=== PATIENT | female | born 1965 | race Caucasian/White ===

== ENCOUNTER → 2016-11-12 19:36 | Emergency (ER) | payer OTHER ==
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
[2016-11-12 22:37] VITALS: BP 135/73
== END | disposition home or self-care (01) ==
LOC: ED 19:36
DX: S01.01XA Laceration without foreign body of scalp, initial encounter (principal); S09.90XA Unspecified injury of head, initial encounter; F17.200 Nicotine dependence, unspecified, uncomplicated; Y04.8XXA Assault by other bodily force, initial encounter; Y92.9 Unspecified place or not applicable
CPT/HCPCS: 12002; 70450; 72125; 99283

== ENCOUNTER 2017-04-17 15:04 | Emergency (ER) | payer MEDICAID ==
[2017-04-17 17:14] VITALS: BP 137/67
--- NOTE | 2017-05-03 08:38 | ED ---
Lower Extremity - HPI Summary HPI Summary: Patient presents to the ED with CC of left knee pain. She states she injured the knee with a twisting motion over 1 month ago and the knee continues to be painful. Images obtained with no signs of fracture. No ecchymosis or swelling. Ambulating well. Pain is worse at night and while ambulating. Better with rest and ice. Ibuprofen without relief. Otherwise healthy. Pain is discretely located over the medial knee without radiation. - History of Current Complaint Chief Complaint: EDExtremityLower Stated Complaint: LEFT KNEE INJURY Time Seen by Provider: 04/17/17 15:23 Hx Obtained From: Patient Mechanism Of Injury: Twisted Onset of Pain: Immediate Onset/Duration: Still Present - over 1 month Severity Initially: Moderate Severity Currently: Moderate Pain Intensity: 10 Pain Scale Used: 0-10 Numeric Timing: Constant Location: Is Discrete @ - medial L knee Associated Signs And Symptoms: Positive: Negative Aggravating Factor(s): Standing, Ambulation Alleviating Factor(s): Rest, Elevation Able to Bear Weight: Yes - Risk Factors Gout Risk Factors: Age Over 40 DVT Risk Factors: Negative Septic Arthritis Risk Factor: Negative - Allergies/Home Medications Allergies/Adverse Reactions: Allergies Allergy/AdvReac Type Severity Reaction Status Date / Time No Known Allergies Allergy Verified 03/13/14 12:46 PMH/Surg Hx/FS Hx/Imm Hx Previously Healthy: Yes Endocrine/Hematology History: Denies: Hx Diabetes Cardiovascular History: Denies: Hx Congestive Heart Failure, Hx Hypertension, Hx Pacemaker/ICD Musculoskeletal History: Reports: Hx Arthritis Sensory History: Denies: Hx Hearing Aid Psychiatric History: Denies: Hx Panic Disorder - Surgical History Surgery Procedure, Year, and Place: 6 C-SECTIONS - Immunization History Hx Pertussis Vaccination: No Immunizations Up to Date: Unable to Obtain/Confirm Infectious Disease History: No Infectious Disease History: Denies: Traveled Outside the [place] in Last 30 Days - Family History Known Family History: Positive: Cardiac Disease, Hypertension, Diabetes - Social History Occupation: Employed Full-time Lives: With Family Alcohol Use: Occasionally Hx Substance Use: No Substance Use Type: Reports: None Hx Tobacco Use: Yes Smoking Status (MU): Heavy Every Day Tobacco Smoker Review of Systems Constitutional: Negative Negative: Fever, Chills, Fatigue Eyes: Negative Cardiovascular: Negative Respiratory: Negative Genitourinary: Negative Positive: no symptoms reported, see HPI Positive: Arthralgia - L medial knee pain Skin: Negative Psychological: Normal All Other Systems Reviewed And Are Negative: Yes Physical Exam Triage Information Reviewed: Yes Vital Signs On Initial Exam: Initial Vitals Temp Pulse Resp BP Pulse Ox 98.2 F 95 20 141/86 95 04/17/17 15:10 04/17/17 15:10 04/17/17 15:10 04/17/17 15:10 04/17/17 15:10 Vital Signs Reviewed: Yes Appearance: Positive: Well-Appearing, Well-Nourished Skin: Positive: Warm, Skin Color Reflects Adequate Perfusion Head/Face: Positive: Normal Head/Face Inspection Eyes: Positive: EOMI, FOREST, Conjunctiva Clear Neck: Positive: Supple, No Lymphadenopathy Respiratory/Lung Sounds: Positive: Clear to Auscultation, Breath Sounds Present Cardiovascular: Positive: Normal, RRR, Pulses are Symmetrical in both Upper and Lower Extremities Musculoskeletal: Positive: Pain @ - medial knee Neurological: Positive: Speech Normal Psychiatric: Positive: Normal - [place] Coma Scale Coma Scale Total: 15 Diagnostics - Vital Signs Vital Signs Temp Pulse Resp BP Pulse Ox 04/17/17 17:13 98.2 F 93 16 137/67 04/17/17 15:10 98.2 F 95 20 141/86 95 - Laboratory Lab Statement: Any lab studies that have been ordered have been reviewed, and results considered in the medical decision making process. Lower Extremity Course/Dx - Course Course Of Treatment: Patient is evlauated for medial knee pain. Patient notes to pain with flexion and extension. Denies other pain at this time. Deferred any imaging as no new injury occurred from injury sustained 1 month ago. She may need more imaging and will refer to ortho. She is given 2 days of tramadol. Patient given orthopedic follow up in 5-7 days. Encouraged Ibuprofen 600mg three times daily with meals for pain. Return precautions given. Educated patient regarding knee injuries and healing time and the possibility of further evaluation and imaging as orthopedist sees fit. - Diagnoses Differential Diagnosis/HQI/PQRI: Positive: Contusion Provider Diagnoses: Strain of knee Discharge - Discharge Plan Condition: Stable Disposition: HOME Prescriptions: traMADol TAB* [Ultram*] 50 mg PO Q12H PRN #10 tab MDD 2 PRN Reason: Pain Patient Education Materials: Knee Sprain (ED) Forms: *Work Release Referrals: Miguelangel Delgado MD [Medical Doctor] - Sebastien Pinto MD [Primary Care Provider] - Additional Instructions: Please follow up with ortho Tramadol as needed for pain Ice Heat Elevate
== END 2017-04-17 17:13 | disposition home or self-care (01) ==
LOC: ED 15:04
DX: S83.92XA Sprain of unspecified site of left knee, initial encounter (principal); M25.562 Pain in left knee; X50.9XXA Other and unspecified overexertion or strenuous movements or postures, initial encounter; Y93.9 Activity, unspecified; Y92.9 Unspecified place or not applicable
CPT/HCPCS: 99282

== ENCOUNTER 2018-08-18 03:36 | Emergency (ER) | payer OTHER ==
--- NOTE | 2018-08-18 04:15 | ED ---
Upper Extremity Pain - HPI Summary HPI Summary: A 53 y/o female, accompanied by her niece, presents to [facility] with a chief complaint of left thumb pain, claiming that her left thumb nail is coming off after jamming it on 08/11/18. At triage the patient rated her pain as an 8/10 in severity. Vital signs at triage - Heart rate: 108 bpm, BP: 99/63, O2 Sat: 95 - History of Current Complaint Chief Complaint: EDExtremityUpper Stated Complaint: L THUMB INUJURY Time Seen by Provider: 08/18/18 03:55 Hx Obtained From: Patient Mechanism Of Injury: Other - jammed fingere Onset/Duration: Started Days Ago, Still Present Timing: Constant, Lasting Days Severity Initially: Severe Severity Currently: Severe Pain Location: Finger - left thumb Character: Unable to Describe Aggravating Factor(s): Nothing Alleviating Factor(s): Nothing Associated Signs & Symptoms: Negative: Fever - Allergies/Home Medications Allergies/Adverse Reactions: Allergies Allergy/AdvReac Type Severity Reaction Status Date / Time No Known Allergies Allergy Verified 03/13/14 12:46 PMH/Surg Hx/FS Hx/Imm Hx Endocrine/Hematology History: Denies: Hx Diabetes Cardiovascular History: Denies: Hx Congestive Heart Failure, Hx Hypertension, Hx Pacemaker/ICD Musculoskeletal History: Reports: Hx Arthritis Sensory History: Denies: Hx Hearing Aid Psychiatric History: Denies: Hx Panic Disorder - Surgical History Surgery Procedure, Year, and Place: 6 C-SECTIONS Infectious Disease History: No Infectious Disease History: Denies: Traveled Outside the [place] in Last 30 Days - Family History Known Family History: Positive: Cardiac Disease, Hypertension, Diabetes - Social History Alcohol Use: Occasionally Hx Substance Use: No Substance Use Type: Reports: None Hx Tobacco Use: Yes Smoking Status (MU): Heavy Every Day Tobacco Smoker Review of Systems Negative: Fever Positive: Other - positive: left thum pain, left thumb fingernail coming off All Other Systems Reviewed And Are Negative: Yes Physical Exam - Summary Physical Exam Summary: Appearance: Well-appearing, Well-nourished, lying in bed comfortable Skin: Warm, dry, no obvious rash Eyes: sclera anicteric, no conjunctival pallor ENT: mucous membranes moist Neck: deferred Respiratory: No signs of respiratory distress Cardiovascular: Appears well perfused, pulses are nml Abdomen: deferred Musculoskeletal: Left thumb nail from nail bed holding on at nail matrix, Tenderness at distal phalanx. Moving all 4 extremities without obvious discomfort Neurological: Awake and alert, mentation is normal, speech is fluent and appropriate Psychiatric: affect is normal, does not appear anxious or depressed Triage Information Reviewed: Yes Vital Signs On Initial Exam: Initial Vitals Temp Pulse Resp BP Pulse Ox 98 F 108 18 99/63 95 08/18/18 03:55 08/18/18 03:55 08/18/18 03:55 08/18/18 03:55 08/18/18 03:55 Vital Signs Reviewed: Yes Diagnostics - Vital Signs Vital Signs Temp Pulse Resp BP Pulse Ox 08/18/18 03:55 98 F 108 18 99/63 95 - Laboratory Lab Statement: Any lab studies that have been ordered have been reviewed, and results considered in the medical decision making process. - Radiology left thumb x-ray Radiology Interpretation Completed By: ED Physician Summary of Radiographic Findings: No fracture. Pending official imaging report. Course/Dx - Course Course Of Treatment: A 53 y/o female, accompanied by her niece, presents to [facility] with a chief complaint of left thumb pain, claiming that her left thumb nail is coming off after jamming it on 08/11/18. At triage the patient rated her pain as an 8/10 in severity. The physical exam revealed that her left thumb nail from nail bed holding on at nail matrix, Tenderness at distal phalanx. Left thumb x-ray showed no fracture. The patient will be discharged. She is agreeable with this plan. - Diagnoses Provider Diagnoses: Subungual hematoma Discharge - Sign-Out/Discharge Documenting (check all that apply): Patient Departure - DC Patient Received Moderate/Deep Sedation with Procedure: No - Discharge Plan Condition: Good Disposition: HOME Patient Education Materials: Subungual Hematoma (ED) Referrals: Sebastien Pinto MD [Primary Care Provider] - If Needed Additional Instructions: The nail has from the nailbed but is still holding on by the nail matrix under the cuticle. This is where the nail grows out from, and it is important to keep the nail there and intact. It should grow out gradually. Keep the nail trimmed so it is less likely to get caught on something and pulled off , and it can be very helpful to wrap it with tape to keep it in place. The xray looked fine, there is no break in the bone. - Billing Disposition and Condition Condition: GOOD Disposition: Home - Attestation Statements Document Initiated by Rosa: Yes Documenting Frankieibe: Juni Yang Provider For Whom Rosa is Documenting (Include Credential): Gibson Armenta MD Scribe Attestation: IJuni, scribed for Gibson Armenta MD on 08/18/18 at 0515. Scribe Documentation Reviewed: Yes Provider Attestation: The documentation as recorded by the Juni aaron accurately reflects the service I personally performed and the decisions made by me, Gibson Armenta MD Status of Scribe Document: Viewed
[2018-08-18 04:41] VITALS: BP 116/61
--- NOTE | 2018-08-18 17:47 | PN ---
Progress Note - Progress Note Date of Service: 08/18/18 Note: Pt. seen in ED last night for thumb injury. Xray read as negative by ER physician. Radiologist is concerned there may be a nondisplaced fx to distal aspect of thumb. I attempted to call pt. today at [phone] but number listed is not her home number. Will send letter to return call to discuss xray.
== END 2018-08-18 04:41 | disposition home or self-care (01) ==
LOC: ED 03:36
DX: S60.012A Contusion of left thumb without damage to nail, initial encounter (principal); W22.8XXA Striking against or struck by other objects, initial encounter; Y92.9 Unspecified place or not applicable; F17.210 Nicotine dependence, cigarettes, uncomplicated
CPT/HCPCS: 99282

== ENCOUNTER 2021-02-03 11:30 | Inpatient (IN) ==
[2021-02-03 12:32] LABS: Hematocrit 50 % (35-47); Hemoglobin 16.5 g/dL (12.0-16.0); Mean Corpuscular HGB Conc 33 g/dL (31-36); Mean Corpuscular Hemoglobin 31 pg (27-31); Mean Corpuscular Volume 96 fL (80-97); Mean Platelet Volume 10.2 fL (7.4-10.4); Platelet Count 132 10^3/uL (150-450); Red Blood Count 5.24 10^6 /uL (3.70-4.87); Red Cell Distribution Width 15 % (10-15); White Blood Count 6.2 10^3/uL (3.5-10.8)
[2021-02-03 12:35] LABS: Urine Appearance Clear; Urine Bilirubin Negative (Negative); Urine Blood 1+ (Negative); Urine Color Yellow; Urine Glucose Negative (Negative); Urine Ketones Negative (Negative); Urine Nitrite Negative (Negative); Urine Protein Negative (Negative); Urine Specific Gravity 1.008 (1.002-1.030); Urine Urobilinogen Negative (Negative)
[2021-02-03 13:02] LABS: ABS Eosinophils 0.1 10^3/ul (0-0.6); ABS Lymphocytes 0.5 10^3/ul (1.0-4.8); ABS Monocytes 0.6 10^3/ul (0-0.8); Eosinophil % 0.9 %; Nucleated Red Blood Cells % 0.1; Urine Bacteria Absent (Absent); Urine Red Blood Cell Trace(0-2/hpf) (Absent); Urine Squamous Epithelial Cell Present (Absent); Urine White Blood Cell Trace(0-5/hpf) (Absent)
[2021-02-03] MEDS ORDERED: Furosemide 40 mg/4 ml IV VIAL IV ONE (13:18)
[2021-02-03 13:44] LABS: ALT 33 U/L (7-52); Albumin 3.4 g/dL (3.2-5.2); Albumin/Globulin Ratio 1.6 (1-3); Alkaline Phosphatase 75 U/L (35-149); Blood Urea Nitrogen 10 mg/dL (6-24); CO2 Carbon Dioxide 25 mmol/L (22-32); Calcium 8.3 mg/dL (8.6-10.3); Chloride 105 mmol/L (101-111); EGFR African American 69.4 (>60); EGFR Non-African American 57.3 (>60); Globulin 2.1 g/dL (2-4); Glucose 106 mg/dL (70-100); Sodium 136 mmol/L (135-145); Total Protein 5.5 g/dL (6.4-8.9)
[2021-02-03 13:47] LABS: Anion Gap 6 mmol/L (2-11)
[2021-02-03 13:48] LABS: Troponin I 0.11 ng/mL (<0.03)
[2021-02-03 14:31] LABS: Potassium Redraw 3.5 mmol/L (3.5-5.0)
[2021-02-03] MEDS ORDERED: Ondansetron 4 mg VIAL 2 MG/ML 2 ml VIAL IV PRN (16:45)
[2021-02-03] MEDS ORDERED: Enoxaparin 40 MG/0.4 ML SYR SUBCUT SCH (17:00)
[2021-02-03 21:07] LABS: Anion Gap 9 mmol/L (2-11); Blood Urea Nitrogen 9 mg/dL (6-24); CO2 Carbon Dioxide 27 mmol/L (22-32); Calcium 8.4 mg/dL (8.6-10.3); Chloride 103 mmol/L (101-111); EGFR African American 68.6 (>60); EGFR Non-African American 56.7 (>60); Glucose 120 mg/dL (70-100); Magnesium 1.4 mg/dL (1.9-2.7); Potassium 3.4 mmol/L (3.5-5.0); Sodium 139 mmol/L (135-145)
[2021-02-03 21:13] LABS: Troponin I 0.13 ng/mL (<0.03)
[2021-02-04 00:11] LABS: Troponin I 0.15 ng/mL (<0.03)
[2021-02-04 01:31] LABS: ABS Basophils 0.1 10^3/ul (0-0.2); ABS Lymphocytes 0.6 10^3/ul (1.0-4.8); ABS Monocytes 0.5 10^3/ul (0-0.8); ABS Neutrophils 4.3 10^3/ul (1.5-7.7); Eosinophil % 0.4 %; Hematocrit 44 % (35-47); Hemoglobin 14.6 g/dL (12.0-16.0); Lymphocyte % 10.8 %; Mean Corpuscular HGB Conc 33 g/dL (31-36); Mean Corpuscular Hemoglobin 31 pg (27-31); Mean Corpuscular Volume 95 fL (80-97); Mean Platelet Volume 10.3 fL (7.4-10.4); Platelet Count 124 10^3/uL (150-450); Red Blood Count 4.67 10^6 /uL (3.70-4.87); Red Cell Distribution Width 15 % (10-15); White Blood Count 5.5 10^3/uL (3.5-10.8)
[2021-02-04 01:48] LABS: EGFR African American 64.2 (>60); EGFR Non-African American 53.1 (>60)
[2021-02-04] MEDS: Heparin 5000 UNITS/ML 1 mL VIAL IV PRN ×2 (01:54→15:39)
[2021-02-04] MEDS: Heparin DRIP 25,000 UNITS BAG 25,000 UNITS/500 ML BAG IV SCH (01:55)
[2021-02-04] MEDS: Furosemide 40 mg/4 ml IV VIAL IV SCH (05:46)
[2021-02-04 08:36] LABS: Anion Gap 7 mmol/L (2-11); Blood Urea Nitrogen 10 mg/dL (6-24); CO2 Carbon Dioxide 28 mmol/L (22-32); Chloride 100 mmol/L (101-111); EGFR African American 62.2 (>60); EGFR Non-African American 51.4 (>60); Glucose 100 mg/dL (70-100); Magnesium 1.3 mg/dL (1.9-2.7); Potassium 3.6 mmol/L (3.5-5.0); Sodium 135 mmol/L (135-145)
[2021-02-04 09:12] LABS: Troponin I 0.16 ng/mL (<0.03)
[2021-02-04] MEDS ORDERED: Magnesium Sulf 4 GM/100 ML IV 4,000 MG/100 ML BAG IVPB ONE (17:01)
[2021-02-04 18:11] LABS: Troponin I 0.15 ng/mL (<0.03)
[2021-02-04] MEDS ORDERED: Remdesivir 100 mg Vial 200 MG in NS 0.9% 250 ml 210 ML IV ONE (20:00)
[2021-02-04 22:28] LABS: Albumin 2.8 g/dL (3.2-5.2); Albumin/Globulin Ratio 1.4 (1-3); Calcium 7.6 mg/dL (8.6-10.3); EGFR African American 66.3 (>60); EGFR Non-African American 54.8 (>60); Potassium 3.4 mmol/L (3.5-5.0); Total Bilirubin 0.8 mg/dL (0.2-1.0); Total Protein 4.8 g/dL (6.4-8.9)
[2021-02-04 23:02] LABS: Activated Partial Thrombo Time 60.1 seconds (26.0-38.0); INR 1.35 (0.86-1.15)
[2021-02-05] MEDS: Furosemide 40 mg/4 ml IV VIAL IV SCH (05:08)
[2021-02-05 05:42] LABS: Hematocrit 42 % (35-47); Hemoglobin 13.9 g/dL (12.0-16.0); Mean Corpuscular HGB Conc 33 g/dL (31-36); Mean Corpuscular Hemoglobin 31 pg (27-31); Mean Corpuscular Volume 94 fL (80-97); Red Blood Count 4.46 10^6 /uL (3.70-4.87); Red Cell Distribution Width 15 % (10-15)
[2021-02-05 05:55] LABS: ABS Lymphocytes 0.5 10^3/ul (1.0-4.8); ABS Monocytes 0.3 10^3/ul (0-0.8); ABS Neutrophils 3.2 10^3/ul (1.5-7.7); Activated Partial Thrombo Time 70.6 seconds (26.0-38.0); INR 1.3 (0.86-1.15); Lymphocyte % 11.7 %; Mean Platelet Volume 10.5 fL (7.4-10.4); Nucleated Red Blood Cells % 0.1; Platelet Count 97 10^3/uL (150-450)
[2021-02-05 05:57] LABS: Albumin 2.9 g/dL (3.2-5.2); Albumin/Globulin Ratio 1.5 (1-3); Calcium 7.7 mg/dL (8.6-10.3); EGFR African American 69.4 (>60); EGFR Non-African American 57.3 (>60); Magnesium 1.9 mg/dL (1.9-2.7); Potassium 3.4 mmol/L (3.5-5.0); Total Bilirubin 0.7 mg/dL (0.2-1.0); Total Protein 4.9 g/dL (6.4-8.9)
[2021-02-05] MEDS: Heparin DRIP 25,000 UNITS BAG 25,000 UNITS/500 ML BAG IV SCH (07:37)
[2021-02-05] MEDS ORDERED: Potassium Chlor 20 meq TAB.ER PO ONE (17:18)
[2021-02-05] MEDS ORDERED: Magnesium Sulfate 2 gm BAG 2 GM/50 ML BAG IVPB ONE (17:19)
[2021-02-05] MEDS ORDERED: Remdesivir 100 mg Vial 100 MG in NS 0.9% 250 ml 230 ML IV SCH (21:00)
[2021-02-06] MEDS: Albuterol HFA INHALER 8 gm MDI INH PRN ×2 (03:59→10:17)
[2021-02-06] MEDS: Furosemide 40 mg/4 ml IV VIAL IV SCH (05:16)
[2021-02-06 06:10] LABS: Activated Partial Thrombo Time 29.2 seconds (26.0-38.0); INR 1.14 (0.86-1.15)
[2021-02-06 06:18] LABS: Albumin 2.9 g/dL (3.2-5.2); Albumin/Globulin Ratio 1.3 (1-3); Calcium 8.1 mg/dL (8.6-10.3); EGFR African American 71.8 (>60); EGFR Non-African American 59.4 (>60); Globulin 2.2 g/dL (2-4); Potassium 3.9 mmol/L (3.5-5.0); Total Bilirubin 0.7 mg/dL (0.2-1.0); Total Protein 5.1 g/dL (6.4-8.9)
[2021-02-06] MEDS ORDERED: Enoxaparin 40 MG/0.4 ML SYR SUBCUT SCH (10:00)
[2021-02-06] MEDS ORDERED: Senna TAB 8.6 mg TAB PO PRN (12:58)
[2021-02-06] MEDS ORDERED: Magnesium Hydroxide LIQ 30 ML UDC PO PRN (12:58)
[2021-02-06] MEDS ORDERED: Polyethylene Glycol 3350 17 GM PACKET PO PRN (12:59)
[2021-02-06] MEDS ORDERED: Heparin 5000 UNITS/ML 1 mL VIAL SUBCUT SCH (14:00)
[2021-02-06 15:08] VITALS: BP 91/71
== END 2021-02-06 16:00 | disposition home or self-care (01) | DRG 137 ==
LOC: ED 11:30 → MED 11:30 → SUATTDRO 02-04 17:00
PROVIDERS: ADMIT Internal Medicine; ATTEND Internal Medicine

== ENCOUNTER 2021-02-11 08:41 | Observation (INO) ==
[2021-02-11 09:27] LABS: PCO2 Arterial 25 mmHg (35-45); PO2 Arterial 105 mmHg (80-100)
[2021-02-11 10:16] LABS: ABS Lymphocytes 1.1 10^3/ul (1.0-4.8); ABS Monocytes 0.7 10^3/ul (0-0.8); ABS Neutrophils 9.2 10^3/ul (1.5-7.7); Eosinophil % 0.1 %; Hematocrit 47 % (35-47); Hemoglobin 15.5 g/dL (12.0-16.0); Mean Corpuscular HGB Conc 33 g/dL (31-36); Mean Corpuscular Hemoglobin 31 pg (27-31); Mean Corpuscular Volume 93 fL (80-97); Red Blood Count 4.98 10^6 /uL (3.70-4.87); Red Cell Distribution Width 15 % (10-15)
[2021-02-11 10:31] LABS: Blood Urea Nitrogen 22 mg/dL (6-24); CO2 Carbon Dioxide 28 mmol/L (22-32); Calcium 8.2 mg/dL (8.6-10.3); Chloride 101 mmol/L (101-111); EGFR African American 56.3 (>60); EGFR Non-African American 46.5 (>60); Glucose 119 mg/dL (70-100); Sodium 136 mmol/L (135-145)
[2021-02-11] MEDS ORDERED: Iodixanol (CONTRAST) 320 MG/ML 100 ML SDV IV ONE (10:35)
[2021-02-11 10:43] LABS: Anion Gap 7 mmol/L (2-11); Troponin I 0.05 ng/mL (<0.03)
[2021-02-11 10:58] LABS: Large Platelets Present; Mean Platelet Volume 12.1 fL (7.4-10.4); Platelet Count 146 10^3/uL (150-450)
[2021-02-11] MEDS ORDERED: Dexamethasone IV 4 MG/ML 5 ML VIAL (20 MG) IVPB ONE (12:02)
[2021-02-11] MEDS ORDERED: Albuterol HFA INHALER 8 gm MDI INH PRN (13:05)
[2021-02-11 13:24] LABS: ALT 40 U/L (7-52); Albumin 3.3 g/dL (3.2-5.2); Albumin/Globulin Ratio 1.6 (1-3); Alkaline Phosphatase 146 U/L (35-149); Globulin 2.1 g/dL (2-4); Total Protein 5.4 g/dL (6.4-8.9)
[2021-02-11] MEDS: Enoxaparin 40 MG/0.4 ML SYR SUBCUT SCH (14:48)
[2021-02-11 15:27] LABS: Troponin I 0.04 ng/mL (<0.03)
[2021-02-11 15:33] LABS: AST Redraw 42 U/L (13-39); Potassium Redraw 4.2 mmol/L (3.5-5.0)
[2021-02-11] MEDS: Albuterol HFA INHALER 8 gm MDI INH SCH ×3 (16:02→23:18)
[2021-02-12] MEDS: Albuterol HFA INHALER 8 gm MDI INH SCH ×3 (02:49→10:48)
[2021-02-12 07:02] LABS: Hematocrit 46 % (35-47); Hemoglobin 15.4 g/dL (12.0-16.0); Mean Corpuscular HGB Conc 33 g/dL (31-36); Mean Corpuscular Hemoglobin 31 pg (27-31); Mean Corpuscular Volume 93 fL (80-97); Red Blood Count 4.94 10^6 /uL (3.70-4.87); Red Cell Distribution Width 15 % (10-15); White Blood Count 9.7 10^3/uL (3.5-10.8)
[2021-02-12 07:07] LABS: Albumin 3.1 g/dL (3.2-5.2); Albumin/Globulin Ratio 1.4 (1-3); Calcium 8.5 mg/dL (8.6-10.3); EGFR African American 55.8 (>60); EGFR Non-African American 46.1 (>60); Globulin 2.2 g/dL (2-4); Potassium 4.3 mmol/L (3.5-5.0); Total Bilirubin 1.1 mg/dL (0.2-1.0); Total Protein 5.3 g/dL (6.4-8.9)
[2021-02-12 08:48] LABS: ABS Lymphocytes 1.1 10^3/ul (1.0-4.8); ABS Monocytes 0.8 10^3/ul (0-0.8); ABS Neutrophils 7.8 10^3/ul (1.5-7.7); Eosinophil % 0.1 %; Lymphocyte % 10.9 %; Mean Platelet Volume 11.7 fL (7.4-10.4); Nucleated Red Blood Cells % 0.2; Platelet Count 128 10^3/uL (150-450)
[2021-02-12 09:31] VITALS: BP 108/88
[2021-02-12] MEDS ORDERED: Albuterol HFA INHALER 8 gm MDI INH SCH (13:00)
[2021-02-12] MEDS: Enoxaparin 40 MG/0.4 ML SYR SUBCUT SCH (14:08)
== END 2021-02-12 15:00 | disposition home or self-care (01) ==
LOC: ED 08:41 → MED 08:41
PROVIDERS: ADMIT Hospitalist; ATTEND Hospitalist

== ENCOUNTER 2021-03-11 04:58 | Inpatient (IN) ==
[2021-03-11] MEDS ORDERED: Lactated Ringers 1000 ml BAG 1,000 ML IV ONE (05:43)
[2021-03-11] MEDS ORDERED: Albuterol HFA INHALER 8 gm MDI INH ONE (06:22)
[2021-03-11] MEDS ORDERED: Albuterol 2.5mg/3 ml (0.083%) NEB.SOLN INH ONE (06:26)
[2021-03-11 06:43] LABS: ABS Basophils 0.1 10^3/ul (0-0.2); ABS Eosinophils 0.1 10^3/ul (0-0.6); ABS Lymphocytes 1.5 10^3/ul (1.0-4.8); ABS Monocytes 0.8 10^3/ul (0-0.8); ABS Neutrophils 5.6 10^3/ul (1.5-7.7); Eosinophil % 1.7 %; Hematocrit 41 % (35-47); Hemoglobin 13.8 g/dL (12.0-16.0); Lymphocyte % 18.3 %; Mean Corpuscular HGB Conc 34 g/dL (31-36); Mean Corpuscular Hemoglobin 30 pg (27-31); Mean Corpuscular Volume 90 fL (80-97); Mean Platelet Volume 9.7 fL (7.4-10.4); Platelet Count 185 10^3/uL (150-450); Red Blood Count 4.54 10^6 /uL (3.70-4.87); Red Cell Distribution Width 16 % (10-15)
[2021-03-11 07:01] LABS: Albumin/Globulin Ratio 1.1 (1-3); Calcium 8.6 mg/dL (8.6-10.3); EGFR African American 64.2 (>60); EGFR Non-African American 53.1 (>60); Globulin 2.7 g/dL (2-4); Potassium 3.1 mmol/L (3.5-5.0); Total Bilirubin 1.5 mg/dL (0.2-1.0); Total Protein 5.7 g/dL (6.4-8.9)
[2021-03-11] MEDS ORDERED: Piperacillin/Tazobac ADVAN 3.375 GM in NS 0.9% 100 ml BAG 100 ML IV ONE (08:47)
[2021-03-11] MEDS ORDERED: Lactated Ringers 1000 ml BAG 1,000 ML IV SCH (09:00)
[2021-03-11] MEDS ORDERED: fentaNYL 100 mcg/2 ml 50 MCG/ML VIAL IV SLOW PU ONE (10:18)
[2021-03-11] MEDS ORDERED: Piperacillin/Tazobac 3.375 GM BAG ONE (10:20)
[2021-03-11] MEDS ORDERED: Albuterol HFA INHALER 8 gm MDI INH PRN (11:55)
[2021-03-11] MEDS ORDERED: KCL 20 MEQ/100 ML IVPREMIX 20 MEQ/100 ML BAG IV SCH (12:00)
[2021-03-11] MEDS ORDERED: Zosyn per Pharmacy NOTE FOLLOW UP SCH (12:00)
[2021-03-11 12:44] LABS: Magnesium 1.8 mg/dL (1.9-2.7)
[2021-03-11] MEDS ORDERED: Magnesium Sulfate 2 gm BAG 2 GM/50 ML BAG IVPB ONE (13:03)
[2021-03-11] MEDS ORDERED: ZOSYN 3.375 GM Q8H per EXTENDED INFUSION IV SCH (14:00)
[2021-03-11] MEDS: Morphine 2 MG/ML SYRINGE IV PRN (15:36)
[2021-03-11] MEDS: KCL 20 MEQ/100 ML IVPREMIX 20 MEQ/100 ML BAG IV SCH (21:59)
[2021-03-12] MEDS: KCL 20 MEQ/100 ML IVPREMIX 20 MEQ/100 ML BAG IV SCH (00:29)
[2021-03-12] MEDS: ZOSYN 3.375 GM Q8H per EXTENDED INFUSION IV SCH ×2 (04:09→08:32)
[2021-03-12 06:44] LABS: ABS Basophils 0.1 10^3/ul (0-0.2); ABS Eosinophils 0.1 10^3/ul (0-0.6); ABS Lymphocytes 1.7 10^3/ul (1.0-4.8); ABS Monocytes 0.6 10^3/ul (0-0.8); ABS Neutrophils 4.6 10^3/ul (1.5-7.7); Eosinophil % 1.8 %; Hematocrit 42 % (35-47); Lymphocyte % 23.3 %; Mean Corpuscular HGB Conc 33 g/dL (31-36); Mean Corpuscular Hemoglobin 30 pg (27-31); Mean Corpuscular Volume 90 fL (80-97); Mean Platelet Volume 9.9 fL (7.4-10.4); Nucleated Red Blood Cells % 0.1; Platelet Count 183 10^3/uL (150-450); Red Blood Count 4.67 10^6 /uL (3.70-4.87); Red Cell Distribution Width 15 % (10-15); White Blood Count 7.1 10^3/uL (3.5-10.8)
[2021-03-12 07:04] LABS: Calcium 8.2 mg/dL (8.6-10.3); Potassium 3.7 mmol/L (3.5-5.0); Total Bilirubin 2.3 mg/dL (0.2-1.0)
[2021-03-12 07:10] LABS: Albumin/Globulin Ratio 1.3 (1-3); EGFR African American 69.4 (>60); EGFR Non-African American 57.3 (>60); Globulin 2.4 g/dL (2-4); Total Protein 5.4 g/dL (6.4-8.9)
[2021-03-12] MEDS ORDERED: diPHENhydraMINE 25 mg TAB PO PRN (10:00)
[2021-03-12] MEDS: Morphine 2 MG/ML SYRINGE IV PRN ×2 (10:26)
[2021-03-12] MEDS ORDERED: VERAPAMIL 2.5 MG/ML 2 ML VIAL ** 5 mg/2 ml ONE (11:18)
[2021-03-12] MEDS ORDERED: Midazolam 5 mg/5 ml VIAL 1 mg/ml 5 ml VIAL (5 mg) ONE (11:18)
[2021-03-12] MEDS ORDERED: Heparin 1,000 UNIT/ML 10 ml (10,000 UNITS) CATHLAB/DIALYSIS ONE (11:18)
[2021-03-12] MEDS ORDERED: Heparin 2 UNITS/ML 1000 mls 3,000 ML IV ONE (11:18)
[2021-03-12] MEDS ORDERED: fentaNYL 100 mcg/2 ml 50 MCG/ML VIAL ONE (11:18)
[2021-03-12] MEDS ORDERED: nitroGLYCERIN DRIP 25,000 MCG/250 ML BTL ONE (11:19)
[2021-03-12] MEDS ORDERED: Iohexol 350 (CONTRAST) 200 ML MDV IV ONE ×2 (11:19→11:28)
[2021-03-12] MEDS ORDERED: Lidocaine 1% VIAL 10 MG/ML VIAL ONE (11:19)
[2021-03-12] MEDS ORDERED: Iodixanol 320 (CONTRAST) 100 ML SDV ONE (11:19)
[2021-03-12] MEDS ORDERED: diPHENhydraMINE 25 mg TAB ONE (11:32)
[2021-03-12 16:15] VITALS: BP 133/96
[2021-03-12] MEDS ORDERED: NS 0.9% 1000 ml BAG 1,000 ML IV SCH (19:00)
[2021-03-13 07:33] LABS: POC SO2 94 %
[2021-03-13 07:33] LABS: POC SO2 67 %
[2021-03-13 07:33] LABS: POC SO2 71 %
== END 2021-03-12 17:30 | disposition left against medical advice (07) ==
LOC: ED 04:58 → SSU 11:58
PROVIDERS: ADMIT Internal Medicine; ATTEND Internal Medicine

== ENCOUNTER 2022-03-19 04:46 | Inpatient (IN) ==
[2022-03-19] MEDS ORDERED: Furosemide 100 mg/10 ml IV VIAL IV ONE (05:09)
[2022-03-19] MEDS ORDERED: Nitro 2% OINT (Nitroglycerin) 1 INCH/PAK TOPICAL ONE (05:10)
[2022-03-19 05:37] LABS: ABS Basophils 0.1 10^3/ul (0-0.2); ABS Eosinophils 0.4 10^3/ul (0-0.6); ABS Monocytes 0.7 10^3/ul (0-0.8); ABS Neutrophils 5.1 10^3/ul (1.5-7.7); Hematocrit 39 % (35-47); Hemoglobin 12.4 g/dL (12.0-16.0); Lymphocyte % 13.7 %; Mean Corpuscular HGB Conc 32 g/dL (31-36); Mean Corpuscular Hemoglobin 27 pg (27-31); Mean Corpuscular Volume 86 fL (80-97); Mean Platelet Volume 8.8 fL (7.4-10.4); Nucleated Red Blood Cells % 0.1; Platelet Count 140 10^3/uL (150-450); Red Blood Count 4.58 10^6 /uL (3.70-4.87); Red Cell Distribution Width 17 % (10-15); White Blood Count 7.3 10^3/uL (3.5-10.8)
[2022-03-19 06:10] LABS: Albumin 3.6 g/dL (3.2-5.2); Albumin/Globulin Ratio 1.3 (1-3); Calcium 8.9 mg/dL (8.6-10.3); Globulin 2.7 g/dL (2-4); Potassium 4.1 mmol/L (3.5-5.0); Total Bilirubin 0.9 mg/dL (0.2-1.0); Total Protein 6.3 g/dL (6.4-8.9); eGFR CKD-EPI 56.6 (>60)
[2022-03-19 07:38] LABS: High Sensitivity Troponin 1 Hr 27 pg/mL (<15)
[2022-03-19] MEDS: Enoxaparin 40 MG/0.4 ML SYR SUBCUT SCH (09:24)
[2022-03-19 10:47] LABS: Urine Benzodiazepine Screen None Detected (None Detect); Urine Cannabinoids Screen None Detected (None Detect); Urine Opiates Screen None Detected (None Detect)
[2022-03-19] MEDS: Albuterol HFA INHALER 8 gm MDI INH PRN ×2 (18:07→21:03)
[2022-03-19] MEDS: HYDROcodone/ACETAMIN 5/325 mg TAB PO PRN (20:36)
[2022-03-19] MEDS: Mometasone/Formoter 200/5 MDI INH SCH (22:02)
[2022-03-20 05:59] LABS: Hematocrit 37 % (35-47); Hemoglobin 11.6 g/dL (12.0-16.0); Mean Corpuscular HGB Conc 31 g/dL (31-36); Mean Corpuscular Hemoglobin 27 pg (27-31); Mean Corpuscular Volume 86 fL (80-97); Mean Platelet Volume 9.2 fL (7.4-10.4); Platelet Count 128 10^3/uL (150-450); Red Blood Count 4.26 10^6 /uL (3.70-4.87); Red Cell Distribution Width 17 % (10-15); White Blood Count 5.5 10^3/uL (3.5-10.8)
[2022-03-20 06:30] LABS: Calcium 8.7 mg/dL (8.6-10.3); Potassium 4.2 mmol/L (3.5-5.0); eGFR CKD-EPI 51.7 (>60)
[2022-03-20] MEDS: Mometasone/Formoter 200/5 MDI INH SCH ×2 (07:15→17:59)
[2022-03-20] MEDS ORDERED: Furosemide 40 mg/4 ml IV VIAL IV SCH (08:00)
[2022-03-20] MEDS: HYDROcodone/ACETAMIN 5/325 mg TAB PO PRN (08:28)
[2022-03-20] MEDS: Enoxaparin 40 MG/0.4 ML SYR SUBCUT SCH (08:28)
[2022-03-20 15:59] VITALS: BP 116/81
== END 2022-03-20 17:20 | disposition home health service (06) | DRG 194 ==
LOC: ED 04:46 → EDHOLD 08:16 → SUATTDRO 08:16 → MEDTELE 15:35
PROVIDERS: ADMIT Internal Medicine; ATTEND Internal Medicine

== ENCOUNTER 2022-03-29 12:37 | Observation (INO) ==
[2022-03-29 15:10] LABS: Hematocrit 42 % (35-47); Hemoglobin 13.5 g/dL (12.0-16.0); Mean Corpuscular HGB Conc 32 g/dL (31-36); Mean Corpuscular Hemoglobin 27 pg (27-31); Mean Corpuscular Volume 86 fL (80-97); Platelet Count 225 10^3/uL (150-450); Red Blood Count 4.93 10^6 /uL (3.70-4.87); Red Cell Distribution Width 18 % (10-15); White Blood Count 8.6 10^3/uL (3.5-10.8)
[2022-03-29 15:13] LABS: INR 1.26 (0.89-1.11)
[2022-03-29 15:14] LABS: Activated Partial Thrombo Time 27.8 seconds (26.0-38.0)
[2022-03-29 15:20] LABS: Urine Appearance Clear; Urine Bilirubin Negative (Negative); Urine Blood Negative (Negative); Urine Color Yellow; Urine Glucose Negative (Negative); Urine Ketones Negative (Negative); Urine Nitrite Negative (Negative); Urine Protein 2+(100 mg/dL) (Negative); Urine Specific Gravity 1.014 (1.002-1.030); Urine Urobilinogen Negative (Negative)
[2022-03-29 15:23] LABS: BNP > 1300 pg/mL (<=100)
[2022-03-29 15:25] LABS: Urine Bacteria Absent (Absent); Urine Red Blood Cell Trace(0-2/hpf) (Absent); Urine White Blood Cell Trace(0-5/hpf) (Absent)
[2022-03-29 15:28] LABS: ABS Basophils 0.1 10^3/ul (0-0.2); ABS Monocytes 0.9 10^3/ul (0-0.8); ABS Neutrophils 6.6 10^3/ul (1.5-7.7); Eosinophil % 0.6 %; Lymphocyte % 11.7 %; Nucleated Red Blood Cells % 0.1
[2022-03-29] MEDS ORDERED: HYDROcodone/ACETAMIN 5/325 mg TAB PO ONE (15:34)
[2022-03-29 15:48] LABS: Albumin 3.7 g/dL (3.2-5.2); Albumin/Globulin Ratio 1.3 (1-3); C Reactive Protein 3.49 mg/L (<8.01); Calcium 9.5 mg/dL (8.6-10.3); Globulin 2.8 g/dL (2-4); Magnesium 1.9 mg/dL (1.9-2.7); Potassium 4.5 mmol/L (3.5-5.0); Total Bilirubin 1.4 mg/dL (0.2-1.0); Total Protein 6.5 g/dL (6.4-8.9); eGFR CKD-EPI 40.5 (>60)
[2022-03-29] MEDS ORDERED: Furosemide 40 mg/4 ml IV VIAL IV SLOW PU ONE (15:55)
[2022-03-29] MEDS ORDERED: Iodixanol (CONTRAST) 320 MG/ML 100 ML SDV IV ONE (16:22)
[2022-03-29] MEDS ORDERED: Furosemide 40 mg/4 ml IV VIAL IV ONE (20:20)
[2022-03-29] MEDS ORDERED: Enoxaparin 40 MG/0.4 ML SYR SUBCUT SCH (23:30)
[2022-03-29 23:31] LABS: Urine Benzodiazepine Screen None Detected (None Detect); Urine Cannabinoids Screen None Detected (None Detect); Urine Opiates Screen None Detected (None Detect)
[2022-03-30] MEDS ORDERED: Albuterol HFA INHALER 8 gm MDI INH PRN (00:26)
[2022-03-30] MEDS ORDERED: HYDROcodone/ACETAMIN 5/325 mg TAB PO PRN (00:26)
[2022-03-30] MEDS ORDERED: Albuterol 2.5mg/3 ml (0.083%) NEB.SOLN INH PRN (00:26)
[2022-03-30 06:01] LABS: ABS Basophils 0.1 10^3/ul (0-0.2); ABS Eosinophils 0.1 10^3/ul (0-0.6); ABS Lymphocytes 0.9 10^3/ul (1.0-4.8); ABS Monocytes 0.9 10^3/ul (0-0.8); ABS Neutrophils 7.5 10^3/ul (1.5-7.7); Eosinophil % 1.5 %; Hematocrit 40 % (35-47); Hemoglobin 12.5 g/dL (12.0-16.0); Lymphocyte % 9.9 %; Mean Corpuscular HGB Conc 32 g/dL (31-36); Mean Corpuscular Hemoglobin 27 pg (27-31); Mean Corpuscular Volume 86 fL (80-97); Mean Platelet Volume 8.9 fL (7.4-10.4); Platelet Count 220 10^3/uL (150-450); Red Blood Count 4.61 10^6 /uL (3.70-4.87); Red Cell Distribution Width 18 % (10-15); White Blood Count 9.5 10^3/uL (3.5-10.8)
[2022-03-30 06:42] LABS: Albumin 3.6 g/dL (3.2-5.2); Albumin/Globulin Ratio 1.3 (1-3); Globulin 2.7 g/dL (2-4); Potassium 4.5 mmol/L (3.5-5.0); Total Protein 6.3 g/dL (6.4-8.9); eGFR CKD-EPI 34.4 (>60)
[2022-03-30] MEDS ORDERED: Furosemide 40 mg/4 ml IV VIAL IV SCH (09:00)
[2022-03-30] MEDS ORDERED: Triamcinolone 0.025% OINT 15 GM TUBE TOPICAL SCH (09:00)
[2022-03-30] MEDS ORDERED: Aspirin EC 81 mg TAB.EC (enteric coated) PO SCH (09:00)
[2022-03-30] MEDS ORDERED: Mineral Oil ENEMA 118 ML/BOTTLE BOTTLE PR ONE ×2 (16:24→16:27)
[2022-03-30 16:33] VITALS: BP 105/62
== END 2022-03-30 21:00 | disposition home or self-care (01) ==
LOC: ED 12:37 → EDHOLD 12:37 → SUATTDRO 21:43 → MEDTELE 03-30 01:13
PROVIDERS: ADMIT Internal Medicine; ATTEND Family Medicine